=== PATIENT | male | born 1940 | race Caucasian/White ===

== ENCOUNTER → 2023-07-13 17:02 | Outpatient (ROUT) | payer OTHER, SELFPAY ==
[2023-07-13 17:14] LABS: Add Manual Diff / Slide Review NO; Basophils Absolute Auto 0 /uL (0-100); Basophils Percent Auto 0.4 % (0-2); Eosinophils Absolute Auto 300 /uL (0-450); Eosinophils Percent Auto 3.3 % (2-4); Hematocrit 36.5 % (41-53); Hemoglobin 12.7 g/dL (13.5-17.5); Lymphocytes Absolute Auto 1400 /uL (1100-4500); Mean Corpuscular HGB Conc 34.9 % (30-36); Mean Corpuscular Hemoglobin 31.6 PG (26-34); Mean Corpuscular Volume 90.6 fL (80-100); Monocytes Absolute Auto 800 /uL (0-900); Monocytes Percent Auto 8.2 % (3-14); Neutrophils Absolute Auto 7200 /uL (1500-7000); Neutrophils Percent Auto 74.1 % (50-75); Platelet Count 242 X10^3/uL (150-400); Red Blood Cell Count 4.02 X10^6/uL (4.5-5.9); Red Cell Distribution Width 14.3 % (11.6-14.8); White Blood Cell Count 9.7 X10^3/uL (4.5-11.0)
[2023-07-13 17:19] LABS: BUN Creatinine Ratio 19.1 (6-22); Blood Urea Nitrogen 34 mg/dL (9-20); Calcium 10.6 mg/dL (8.4-10.2); Carbon Dioxide 22 mmol/L (22-32); Chloride 109 mmol/L (98-107); Estimated Glomerular Filt Rate 37 mL/min (>60); Glucose 69 mg/dL (80-110); HEMOLYSIS < 15 (0-50); Potassium 4.2 mmol/L (3.4-5.1); Sodium 136 mmol/L (137-145)
== END ==
PROVIDERS: Visit Provider Family Medicine
DX: G43.009 Migraine without aura, not intractable, without status migrainosus (principal)
CPT/HCPCS: 80048; 85025

== ENCOUNTER → 2023-10-02 15:31 | Outpatient (CLI) | payer OTHER, SELFPAY ==
--- NOTE | 2023-10-02 15:33 | DI.US.S_ITS ---
PROCEDURE: US SCROTUM INDICATIONS: SCROTAL ENLARGEMENT TECHNIQUE: Real-time scanning was performed of the scrotum and testicles, with image documentation. Color and pulse Doppler interrogation was performed of both testicles. COMPARISON: None. FINDINGS: Right: Testicle is normal in size at 4.4 x 2.7 x 2.0 cm, and homogenous in echotexture. Epididymis is normal in overall size and morphology. Moderate hydrocele with approximate volume of 52 cc. No varicoceles. Overlying scrotal skin is normal in thickness. Left: Testicle is normal in size at 4.7 x 2.6 x 2.2 cm, and homogeneous in echotexture. Epididymis is normal in overall size and morphology. Large hiatus for seal with estimated volume of 592 cc. No varicoceles. Overlying scrotal skin is normal in thickness. Doppler: Color and pulse Doppler demonstrate normal and symmetric arterial flow in both testicles. IMPRESSION: Bilateral left greater than right hydroceles. Dictated by: Yun Love M.D. on 10/02/2023 at 16:49 Approved by: Yun Love M.D. on 10/02/2023 at 16:51
== END ==
PROVIDERS: PCP Family Medicine; Referring Provider Family Medicine; Visit Provider Family Medicine
DX: N50.89 Other specified disorders of the male genital organs (principal); N43.3 Hydrocele, unspecified
CPT/HCPCS: 76870; 93975

== ENCOUNTER 2023-10-28 13:58 | Emergency (ER) | payer OTHER, SELFPAY ==
[2023-10-28] VITALS (10 sets, daily range): BP systolic 158–217; BP diastolic 74–88; PULSE 51–72; RESP 14; TEMP 36.6; O2SAT 97–99
--- NOTE | 2023-10-28 14:22 | ED.MALEGU ---
HPI - Male Genitourinary General Chief complaint: Urogenital-Male Stated complaint: Blood In Catheter Time Seen by Provider: 10/28/23 14:04 History of Present Illness HPI Narrative: 83-year-old male with history of dementia, chronic indwelling Portillo catheter presents by private vehicle for blood in his Portillo catheter. Patient lives at a health care facility and previously lived in [facility]. There are few medical records of patient's history but he is being followed for his dementia with Dr. Duncan of primary care. Patient does not know why he has a chronic indwelling Portillo catheter or when it was last changed. There is dark red blood in the Portillo bag. Related Data Home Medications Medication Instructions Recorded Confirmed lorazepam 0.5 mg tablet 0.5 mg PO DAILY PRN Agitation 10/28/23 10/28/23 olanzapine 5 mg tablet 5 mg PO ONCE PM 10/28/23 10/28/23 Previous Rx's Medication Instructions Recorded trazodone 50 mg tablet See Rx Instructions PO BEDTIME PRN 10/22/23 sleep 30 days #45 tabs cefuroxime axetil 500 mg tablet 500 mg PO Q12H #20 tabs 10/28/23 Allergies Allergy/AdvReac Type Severity Reaction Status Date / Time epinephrine AdvReac Mild Verified 10/28/23 14:23 iron AdvReac Mild Verified 10/28/23 14:23 Review of Systems Review of Systems Narrative: Unobtainable due to dementia Patient History Social History Smoking Status: Unknown if ever smoked Exam Initial Vital Signs Initial Vital Signs: Vital Signs Temperature 97.8 F 10/28/23 14:00 Pulse Rate 56 L 10/28/23 14:00 Respiratory Rate 14 10/28/23 14:00 Blood Pressure 158/78 H 10/28/23 14:00 Pulse Oximetry 99 10/28/23 14:00 Oxygen Delivery Method Room Air 10/28/23 14:00 Const: Awake, alert, no acute distress, frail Cardiac: regular rate, regular rhythm RESP: unlabored, clear bilaterally, no wheezing GI: Atraumatic, soft, nontender : Portillo in place draining dark red blood, bilateral scrotal swelling (known hydrocele), penile erosion around portillo site MSK: Atraumatic, full range of motion, pulses equal Skin: Warm, Dry, intact, no rashes Neuro: AO x1, CN II-XII grossly intact, moves all extremities Course Orders Ordered: Discontinued Medications Ceftriaxone Sodium 1,000 mg/ (Sodium Chloride) 100 mls @ 200 mls/hr IV NOW ONE Stop: 10/28/23 16:34 Last Infusion: 10/28/23 17:17 Dose: Infused Documented By: Admin: 10/28/23 16:47 Dose: 200 mls/hr Documented By: CANELO Lidocaine HCl (Lidocaine 2% (Glydo) 6 Ml Gel) 6 ml TOP NOW ONE Stop: 10/28/23 14:14 Last Admin: 10/28/23 14:33 Dose: 6 ml Documented By: CANELO Vital Signs Vital signs: Vital Signs - 8 hr 10/28/23 14:00 10/28/23 14:11 10/28/23 14:30 Temperature 97.8 F Pulse Rate 56 L 65 63 Respiratory Rate 14 Blood Pressure 158/78 H Pulse Oximetry 99 99 97 Oxygen Delivery Method Room Air 10/28/23 15:00 10/28/23 15:25 10/28/23 15:25 Temperature Pulse Rate 56 L 56 L Respiratory Rate Blood Pressure 217/88 H Pulse Oximetry 98 99 Oxygen Delivery Method 10/28/23 15:30 10/28/23 16:45 Temperature Pulse Rate 51 L 65 Respiratory Rate Blood Pressure Pulse Oximetry 99 98 Oxygen Delivery Method MDM - Male Genitourinary Lab Data 10/28/23 15:30 10/28/23 15:30 Labs: Lab Results 10/28/23 10/28/23 Range/Units 14:27 15:30 WBC 12.0 H (4.5-11.0) X10^3/uL RBC 4.22 L (4.5-5.9) X10^6/uL Hgb 12.7 L (13.5-17.5) g/dL Hct 38.0 L (41-53) % MCV 90.1 (80-100) fL MCH 30.1 (26-34) PG MCHC 33.4 (30-36) % RDW 15.0 H (11.6-14.8) % Plt Count 193 (150-400) X10^3/uL Neut % (Auto) 80.2 H (50-75) % Lymph % (Auto) 10.9 L (25-40) % [place] % (Auto) 6.1 (3-14) % Eos % (Auto) 2.3 (2-4) % Baso % (Auto) 0.5 (0-2) % Neut # (Auto) 9600 H (7011-8729) /uL Lymph # (Auto) 1300 (1448-8700) /uL Parmer # (Auto) 700 (0-900) /uL Eos # (Auto) 300 (0-450) /uL Baso # (Auto) 100 (0-100) /uL Sodium 134 L (137-145) mmol/L Potassium 4.1 (3.4-5.1) mmol/L Chloride 109 H (98-107) mmol/L Carbon Dioxide 18 L (22-32) mmol/L BUN 31 H (9-20) mg/dL Creatinine 1.75 H (0.66-1.25) mg/dL Estimated GFR 38 L (>60) mL/min BUN/Creatinine Ratio 17.7 (6-22) Glucose 81 (80-110) mg/dL Calcium 10.5 H (8.4-10.2) mg/dL Total Bilirubin 0.6 (0.2-1.3) mg/dL AST 20 (17-59) IU/L ALT 12 (<50) IU/L Alkaline Phosphatase 136 H (38-126) U/L Total Protein 6.1 L (6.3-8.2) g/dL Albumin 3.4 L (3.5-5.0) g/dL Globulin 2.7 (1.7-4.1) g/dL Albumin/Globulin Ratio 1.3 (1.0-2.8) Urine Color Yellow Urine Appearance Cloudy Urine pH 6.0 (4.5-8.0) Ur Specific [place] 1.015 (1.000-1.035) Urine Protein 2+ H (Negative) Urine Glucose (UA) Negative (Negative) g/dL Urine Ketones Negative (NEGATIVE) Urine Occult Blood 3+ H (Negative) Urine Nitrate Negative (Negative) Urine Bilirubin Negative (NEGATIVE) Urine Urobilinogen 0.2 (0.2) E.U./dL Ur Leukocyte Esterase 3+ H (NEGATIVE) Urine RBC 10-30/hpf H (0-5/HPF) Urine WBC 30-100/hpf H (0-5/HPF) Ur Squamous Epith Cells 0-1 /hpf (0-5/HPF) Urine Bacteria Many (>30) H (None) Ur Culture Indicated? Specimen cultured MDM Narrative Medical decision making narrative: Nontoxic patient with red blood in portillo bag. No significant previous known hx other than prostate cancer and bilateral hydrocele. Patient underwent continuous bladder irrigation until urine was clear. CT shows bladder thickening concerning for cystitis. Patient was given IV dose of antibiotics and discharged on course of antibiotics. Unable to reach POA by phone. Counseled to follow up with urology. Discharge Plan Departure Patient Disposition: Home Clinical Impression: Indwelling urinary catheter present, Hematuria Urinary tract infection Qualifiers: Urinary tract infection type: catheter-associated UTI Indwelling urinary catheter type: indwelling urethral catheter Encounter type: initial encounter Qualified Code(s): T83.511A - Infection and inflammatory reaction due to indwelling urethral catheter, initial encounter Instructions: DI for Urinary Tract Infection (UTI) Prescriptions: New cefuroxime axetil 500 mg tablet 500 mg PO Q12H Qty: 20 0RF No Action trazodone 50 mg tablet See Rx Instructions PO BEDTIME MDD 75 mg PRN (Reason: sleep) 30 Days Qty: 45 5RF Rx Instructions: 50 mg daily at bedtime, may take 25mg (1/2 tab) in 30 min if ineffective olanzapine 5 mg tablet 5 mg PO ONCE PM lorazepam 0.5 mg tablet 0.5 mg PO DAILY PRN (Reason: Agitation) Patient Comments: please clarify instructions. Referrals: Fuad Duncan MD [Primary Care Provider] - Luca Wu MD [Physician] - Stand Alone Forms: Patient Portal/API
[2023-10-28] MEDS: LIDOCAINE 2% (GLYDO) 6 ML GEL TOP (14:33)
[2023-10-28 14:45] LABS: Appearance Urine UA CLOUDY; Bilirubin Urine UA NEGATIVE (NEGATIVE); Color Urine UA YELLOW; Glucose Urine UA NEGATIVE (Negative); Ketones Urine UA NEGATIVE (NEGATIVE); Leukocyte Esterase Urine UA 3+ (NEGATIVE); Nitrite Urine UA NEGATIVE (Negative); Occult Blood Urine UA 3+ (Negative); Protein Urine UA 2+ (Negative); Specific Gravity Urine UA 1.015 (1.000-1.035); Urobilinogen Urine UA 0.2 E.U./dL (0.2)
[2023-10-28 14:58] LABS: Bacteria Urine Many (>30); Culture Indicated Urine Specimen Cultured; RBC Urine 10-30/HPF (0-5/HPF); Squamous Epithelial Cell Urine 0-1 /HPF (0-5/HPF); WBC Urine 30-100/HPF (0-5/HPF)
--- NOTE | 2023-10-28 15:10 | DI.CT.S_ITS ---
PROCEDURE: CT ABDOMEN PELVIS W CON INDICATIONS: painless hematuria TECHNIQUE: After the administration of intravenous contrast, axial sections acquired from the lung bases to the pubic symphysis. Coronal and sagittal reformats were performed. For radiation dose reduction, the following was used: automated exposure control, adjustment of mA and/or kV according to patient size. COMPARISON: None. FINDINGS: Image quality: Degraded by motion artifact. Lower Chest: Small right greater than left pleural effusions. Calcification of the coronary vasculature. ABDOMEN: Liver: No solid mass. Gallbladder: Gallbladder is not seen. Biliary ducts: No biliary dilation. Pancreas: Pancreas divisum is present. There is dilatation of the pancreatic duct within the body and tail measuring roughly 7 mm diameter. Spleen: Size is within normal limits. Adrenal Glands: No adrenal nodules. Kidneys and Ureters: There is moderate left and mild right hydronephrosis. Moderate bilateral ureteral dilatation is present.. No solid mass. No complex renal cystic lesion which requires follow up. Stomach and Bowel: Normal colonic caliber, without significant wall thickening. Normal appendix. Peritoneum: No abnormal intraperitoneal fluid. No free air. Ventral Wall: No hernia. Abdominal Nodes: No retroperitoneal or mesenteric adenopathy by size criteria. Vessels: Aorta and inferior vena cava are normal in size. PELVIS: Pelvic Organs: Unremarkable. Bladder: Severe urinary bladder wall thickening. There are 2 calculi dependently within the urinary bladder lumen measuring 15 mm diameter. Ryan catheter is present. Pelvic Nodes: No enlarged lymph nodes. Miscellaneous: No inguinal hernias are seen. Bones: There are erosions within the endplates adjacent to the L2-L3, L3-L4, and L4-L5 intervertebral discs, possibly secondary to chronic discitis/osteomyelitis sequelae. No evidence of acute discitis/osteomyelitis. IMPRESSION: 1. Severe urinary bladder wall thickening, consistent with cystitis. Follow-up cystoscopy is recommended to exclude underlying malignancy. 2. Urinary bladder calculi. 3. Bilateral ureterovesical junction obstruction, with left greater than right hydronephrosis. 4. Normal appendix. 5. Right greater than left pleural effusions. 6. Dilatation of the pancreatic duct, possibly secondary to underlying neoplasm. Nonemergent outpatient follow-up ERCP is recommended for further assessment. 7. Erosions within the lumbar spine, possibly secondary to chronic osteomyelitis/discitis sequelae. Clinical/laboratory correlation recommended to exclude acute discitis/osteomyelitis. 8. Coronary artery disease. Dictated by: Rizwan Lee M.D. on 10/28/2023 at 16:16 Approved by: Rizwan Lee M.D. on 10/28/2023 at 16:21
[2023-10-28 15:37] LABS: Add Manual Diff / Slide Review NO; Basophils Absolute Auto 100 /uL (0-100); Basophils Percent Auto 0.5 % (0-2); Eosinophils Absolute Auto 300 /uL (0-450); Eosinophils Percent Auto 2.3 % (2-4); Hemoglobin 12.7 g/dL (13.5-17.5); Lymphocytes Absolute Auto 1300 /uL (1100-4500); Lymphocytes Percent Auto 10.9 % (25-40); Mean Corpuscular HGB Conc 33.4 % (30-36); Mean Corpuscular Hemoglobin 30.1 PG (26-34); Mean Corpuscular Volume 90.1 fL (80-100); Monocytes Absolute Auto 700 /uL (0-900); Monocytes Percent Auto 6.1 % (3-14); Neutrophils Absolute Auto 9600 /uL (1500-7000); Neutrophils Percent Auto 80.2 % (50-75); Platelet Count 193 X10^3/uL (150-400); Red Blood Cell Count 4.22 X10^6/uL (4.5-5.9)
[2023-10-28 15:54] LABS: Alanine Aminotransferase 12 IU/L (<50); Albumin 3.4 g/dL (3.5-5.0); Albumin Globulin Ratio 1.3 (1.0-2.8); Alkaline Phosphatase 136 U/L (38-126); Aspartate Aminotransferase 20 IU/L (17-59); BUN Creatinine Ratio 17.7 (6-22); Bilirubin Total 0.6 mg/dL (0.2-1.3); Blood Urea Nitrogen 31 mg/dL (9-20); Calcium 10.5 mg/dL (8.4-10.2); Carbon Dioxide 18 mmol/L (22-32); Chloride 109 mmol/L (98-107); Estimated Glomerular Filt Rate 38 mL/min (>60); Globulin 2.7 g/dL (1.7-4.1); Glucose 81 mg/dL (80-110); HEMOLYSIS 28 (0-50); Potassium 4.1 mmol/L (3.4-5.1); Sodium 134 mmol/L (137-145); Total Protein 6.1 g/dL (6.3-8.2)
[2023-10-28] MEDS: cefTRIAXone 1,000 MG in SODIUM CHLORIDE 0.9% 100 ML 200 MG IV (16:47)
--- NOTE | 2023-10-28 17:52 | PC.NURSE ---
spoke w/ krista at [facility], report given.
== END 2023-10-28 18:41 | disposition home or self-care (01) ==
PROVIDERS: Emergency Provider Emergency Medicine; PCP Family Medicine
DX: R31.9 Hematuria, unspecified (principal); T83.511A Infection and inflammatory reaction due to indwelling urethral catheter, initial encounter
CPT/HCPCS: 36415; 74177; 80053; 81001; 85025; 87077; 87086; 87186; 96365; 99284; J0696; Q9967

== ENCOUNTER → 2024-02-03 11:47 | Outpatient (CLI) | payer OTHER, SELFPAY ==
--- NOTE | 2024-02-03 | DI.RAD.S_ITS ---
PROCEDURE: XR ABDOMEN 1V INDICATIONS: constipation/fecal impaction TECHNIQUE: One view of the abdomen acquired. COMPARISON: [facility], CT, CT ABDOMEN PELVIS W CON, 10/28/2023, 16:02. FINDINGS: Surgical changes and devices: None. Bowel: Moderate fecal debris in the rectum. No obstruction. Soft tissues: No suspicious abdominal calcifications. Visualized solid organ contours appear normal in size. Ovoid calcifications in the midline pelvis correspond with bladder stones noted on the prior CT Bones: No suspicious bony lesions. Convex right thoracolumbar scoliosis. Generalized decreased osseous mineralization noted. IMPRESSION: Moderate fecal debris in the rectum without obstruction Stable midline bladder stones as noted on prior CT Approved by: Tapan Dougherty M.D. on 02/03/2024 at 18:09
== END ==
PROVIDERS: PCP Family Medicine; Referring Provider Family Medicine; Visit Provider Family Medicine
DX: N21.0 Calculus in bladder (principal); R15.9 Full incontinence of feces; R15.2 Fecal urgency
CPT/HCPCS: 74018

== ENCOUNTER → 2024-05-18 13:46 | Outpatient (ROUT) | payer OTHER, SELFPAY | PROVIDERS: PCP Family Medicine; Visit Provider Family Medicine | DX: R30.0 Dysuria (principal) | CPT/HCPCS: 87077; 87086 ==

== ENCOUNTER → 2024-06-15 14:23 | Outpatient (ROUT) | payer OTHER, SELFPAY | PROVIDERS: Visit Provider Family Medicine | DX: R41.0 Disorientation, unspecified (principal) | CPT/HCPCS: 87077; 87086; 87186 ==

== ENCOUNTER 2024-07-13 17:10 | Emergency (ER) | payer OTHER, SELFPAY ==
[2024-07-13 17:17] VITALS: O2SAT 98
[2024-07-13 17:18] VITALS: BP 181/92; PULSE 91; RESP 16; O2SAT 99
[2024-07-13 17:19] VITALS: BP 181/97; PULSE 77; RESP 16; TEMP 36.6; O2SAT 97; BMI 17.3
[2024-07-13] MEDS: LIDOCAINE 2% (GLYDO) 6 ML GEL TOP (17:30)
[2024-07-13 17:53] LABS: Appearance Urine UA CLOUDY; Bilirubin Urine UA NEGATIVE (NEGATIVE); Color Urine UA YELLOW; Glucose Urine UA NEGATIVE (Negative); Ketones Urine UA NEGATIVE (NEGATIVE); Leukocyte Esterase Urine UA 2+ (NEGATIVE); Nitrite Urine UA NEGATIVE (Negative); Occult Blood Urine UA 2+ (Negative); Protein Urine UA 2+ (Negative); Urobilinogen Urine UA 0.2 E.U./dL (0.2); pH Urine UA 6.5 (4.5-8.0)
--- NOTE | 2024-07-13 17:56 | PC.NURSE ---
Patient came in from outside facility adult family home with previously placed indwelling portillo catheter, 18 fr with 26 cc in balloon. Patient has had increasing pain and pressure to abdomen radiating up to chest and head and unable to find a position of comfort, history of prostate cancer, and has had decreased urinary output from his normal, unsure of what normal amount is per reports from EMS. Patients catheter was not draining urine and not dated with turbid thick cloudy brown/yellow urine present in tubing, catheter from outside facility removed. New Portillo catheter placed with Glydo and immediate output of cloudy yellow urine with strong odor noted, 1200 cc output within 15 minutes of catheter placement, lab sample obtained for Urinalysis from new catheter. Patient reported relief of discomfort within 15 minutes of newly placed portillo catheter.
[2024-07-13 18:02] LABS: Bacteria Urine Many (>30); Culture Indicated Urine Specimen Cultured; RBC Urine 1-5/HPF (0-5/HPF); Squamous Epithelial Cell Urine None Seen (0-5/HPF); Urine Volume 10mL (spun); WBC Urine >100/HPF (0-5/HPF)
[2024-07-13 18:12] VITALS: BP 142/82; BP 169/76; PULSE 62; PULSE 81; RESP 16; O2SAT 95; O2SAT 99
--- NOTE | 2024-07-13 18:22 | ED_ITS ---
HPI - Male Genitourinary General Chief complaint: Urogenital-Male Stated complaint: Needs Cath. Flushed Time Seen by Provider: 07/13/24 18:02 History of Present Illness HPI Narrative: Patient presents with blocked portillo catheter x1 day. Hx of mild dementia, lives in adult assisted facility. Upon my evaluation the patient's catheter had already been changed by nursing staff and patient denied any new complaints. He denied back pain, abdominal pain, fever, chills, other complaints. Related Data Home Medications Medication Instructions Recorded Confirmed lorazepam 0.5 mg tablet 0.5 mg PO DAILY PRN Agitation 10/28/23 04/26/24 olanzapine 5 mg tablet 5 mg PO ONCE PM 10/28/23 04/26/24 Previous Rx's Medication Instructions Recorded trazodone 150 mg tablet 150 mg PO BEDTIME sleep 90 days 04/13/24 #90 tabs carbamide perox 6.5 % drop-sod See Rx Instructions otic (ear) BID 04/26/24 chlor 0.9%-sod bicarb solution impacted cerumen 4 days #1 ea otic kit nitrofurantoin macrocrystal 100 mg 100 mg PO BID #14 caps 06/20/24 capsule cefpodoxime 200 mg tablet 200 mg PO Q12H #20 tabs 07/13/24 Allergies Allergy/AdvReac Type Severity Reaction Status Date / Time epinephrine AdvReac Mild Verified 06/16/24 08:06 iron AdvReac Mild Verified 06/16/24 08:06 Patient History Social History Smoking Status: Unknown if ever smoked Smoking Status: Unknown if ever smoked alcohol intake frequency: 0-2 drinks per day Substance Use Type: does not use Exam Initial Vital Signs Initial Vital Signs: Vital Signs Pulse Oximetry 98 07/13/24 17:17 Const: Awake, alert, no acute distress, frail, nontoxic appearing Cardiac: regular rate, regular rhythm RESP: unlabored, clear bilaterally, no wheezing GI: Soft, nontender, nondistended, no rebound, no guarding Skin: Warm, Dry, intact, no rashes Neuro: AO x2, CN II-XII grossly intact, moves all extremities Course Orders Ordered: ED Orders 07/13/24 17:35 UA Complete [Urinalysis and Microscopic] Stat Urine Culture Stat Discontinued Medications Ceftriaxone Sodium (Ceftriaxone 2,000 Mg Vial) 1,000 mg IM NOW ONE Stop: 07/13/24 18:23 Last Admin: 07/13/24 18:35 Dose: 1,000 mg Documented By: RIKKI Lidocaine HCl (Lidocaine 2% (Glydo) 6 Ml Gel) 6 ml TOP NOW ONE Stop: 07/13/24 17:14 Last Admin: 07/13/24 17:30 Dose: 6 ml Documented By: RIKKI Lidocaine HCl (Lidocaine 1% (Pf) 5 Ml) 4.2 ml INJ NOW ONE Stop: 07/13/24 18:23 Last Admin: 07/13/24 18:36 Dose: 4.2 ml Documented By: RIKKI Vital Signs Vital signs: Vital Signs - 8 hr 07/13/24 17:17 07/13/24 17:18 07/13/24 17:18 Temperature Pulse Rate 91 H Respiratory Rate 16 Blood Pressure 181/92 H Pulse Oximetry 98 99 Oxygen Delivery Method 07/13/24 17:19 07/13/24 18:12 07/13/24 18:12 Temperature 98 F Pulse Rate 77 62 Respiratory Rate 16 16 Blood Pressure 181/97 H 142/82 H 169/76 H Pulse Oximetry 97 99 Oxygen Delivery Method Room Air Room Air 07/13/24 18:12 Temperature Pulse Rate 81 Respiratory Rate Blood Pressure Pulse Oximetry 95 Oxygen Delivery Method MDM - Male Genitourinary Lab Data Labs: Lab Results 07/13/24 Range/Units 17:35 Urine Color Yellow Urine Appearance Cloudy Urine pH 6.5 (4.5-8.0) Ur Specific [place] 1.020 (1.000-1.035) Urine Protein 2+ H (Negative) Urine Glucose (UA) Negative (Negative) g/dL Urine Ketones Negative (NEGATIVE) Urine Occult Blood 2+ H (Negative) Urine Nitrate Negative (Negative) Urine Bilirubin Negative (NEGATIVE) Urine Urobilinogen 0.2 (0.2) E.U./dL Ur Leukocyte Esterase 2+ H (NEGATIVE) Urine RBC 1-5/hpf D (0-5/HPF) Urine WBC >100/hpf H (0-5/HPF) Ur Squamous Epith Cells None seen (0-5/HPF) Urine Bacteria Many (>30) H (None) Ur Culture Indicated? Specimen cultured Vol Urine Centrifuged 10ml (spun) MDM Narrative Medical decision making narrative: Previously blocked Portillo catheter. Exchanged by nursing staff with drainage of very significantly cloudy urine. Patient was denying UTI complaints, it was possible that patient was chronically colonized, however due to the previous blockage as well as large amounts of WBCs and bacteria present patient will be started on antibiotics. Previous microbiology shows nearly pansensitive E coli. IM dose of Rocephin given in the emergency department and cefpodoxime sent to pharmacy of choice. Patient advised to follow up with Urology. Discharge Plan Departure Patient Disposition: Home Clinical Impression: Urinary tract infection, Indwelling urinary catheter present Instructions: DI for Urinary Tract Infection (UTI) Activity Restrictions/Additional Instructions: Follow up with your urologist. If you do not have a urologist a referral phone number has been provided for you to call and make an appointment Prescriptions: New cefpodoxime 200 mg tablet 200 mg PO Q12H Qty: 20 0RF Rx Instructions: must administer with a meal/food No Action carbamide [id number] 6.5-0.9 % kit See Rx Instructions otic (ear) BID 4 Days Qty: 1 2RF Rx Instructions: 5-10 drops into the ear(s) twice a day; keep drops in ear for several minutes by keeping head tilted or placing cotton in the ear. Use twice daily for up to four days if needed. trazodone 150 mg tablet 150 mg PO BEDTIME 90 Days Qty: 90 2RF nitrofurantoin macrocrystal 100 mg capsule 100 mg PO BID Qty: 14 0RF Rx Instructions: must administer with a meal/food olanzapine 5 mg tablet 5 mg PO ONCE PM lorazepam 0.5 mg tablet 0.5 mg PO DAILY PRN (Reason: Agitation) Patient Comments: please clarify instructions. Referrals: Fuad Duncan MD [Primary Care Provider] - Stand Alone Forms: Patient Portal/API
[2024-07-13] MEDS: cefTRIAXone 2,000 MG VIAL 1000 MG IM (18:35)
[2024-07-13] MEDS: LIDOCAINE 1% (PF) 5 ML 4.2 ML INJ (18:36)
--- NOTE | 2024-07-13 18:42 | PC.NURSE ---
Call placed to [facility]. Tom, truck driver supervisor will be here to pick patient up in about 7-10 min.
== END 2024-07-13 18:55 | disposition home or self-care (01) ==
PROVIDERS: Student in an Organized Health Care Education/Training Program; Emergency Provider Emergency Medicine; PCP Family Medicine
DX: N39.0 Urinary tract infection, site not specified (principal); F03.A0 Unspecified dementia, mild, without behavioral disturbance, psychotic disturbance, mood disturbance, and anxiety; Z96.0 Presence of urogenital implants
CPT/HCPCS: 81001; 87077; 87086; 87186; 96372; 99283; 99284; J0696

== ENCOUNTER → 2024-07-19 12:08 | Outpatient (CLI) | payer OTHER, SELFPAY ==
[2024-07-19 13:19] LABS: COVID-19 CEPHEID 4-PLEX PCR Negative (Negative); Influenza A - CEPHEID Flu A NEGATIVE (NEGATIVE); Influenza B - CEPHEID Flu B NEGATIVE (NEGATIVE); Respiratory Syncytial Virus Negative (Negative)
== END ==
PROVIDERS: PCP Family Medicine; Visit Provider Physician Assistant Medical
DX: R05.1 Acute cough (principal)
CPT/HCPCS: 0241U

== ENCOUNTER 2024-07-19 12:41 | Emergency (ER) | payer OTHER, SELFPAY ==
[2024-07-19] VITALS (11 sets, daily range): BP systolic 136–183; BP diastolic 74–116; PULSE 60–88; RESP 18–37; TEMP 37.1; O2SAT 94–98; BMI 16.1
--- NOTE | 2024-07-19 12:48 | DI.RAD.S_ITS ---
PROCEDURE: XR CHEST 1V INDICATIONS: Shortness of breath TECHNIQUE: One view of the chest was acquired. COMPARISON: None. FINDINGS: Surgical changes and devices: None. Lungs and pleura: Lungs are clear. No pleural effusions or pneumothorax. Mediastinum: Suprahilar mass on the right. Heart size is normal. Bones and chest wall: No suspicious bony lesions. Overlying soft tissues appear unremarkable. IMPRESSION: Suprahilar mass on the right, probably a thyroid goiter, less likely malignancy. Consider chest CT with contrast for confirmation. Dictated by: Oscar Aguilera M.D. on 07/19/2024 at 13:31 Approved by: Oscar Aguilera M.D. on 07/19/2024 at 13:32
[2024-07-19 14:04] LABS: Add Manual Diff / Slide Review NO; Basophils Absolute Auto 0 /uL (0-100); Basophils Percent Auto 0.2 % (0-2); Eosinophils Absolute Auto 0 /uL (0-450); Eosinophils Percent Auto 0.1 % (2-4); Hematocrit 37.7 % (41-53); Hemoglobin 12.5 g/dL (13.5-17.5); Lymphocytes Absolute Auto 800 /uL (1100-4500); Lymphocytes Percent Auto 5.6 % (25-40); Mean Corpuscular HGB Conc 33.3 % (30-36); Mean Corpuscular Hemoglobin 29.3 PG (26-34); Monocytes Absolute Auto 900 /uL (0-900); Monocytes Percent Auto 6.1 % (3-14); Neutrophils Absolute Auto 12900 /uL (1500-7000); Platelet Count 257 X10^3/uL (150-400); Red Blood Cell Count 4.28 X10^6/uL (4.5-5.9); Red Cell Distribution Width 16.7 % (11.6-14.8); White Blood Cell Count 14.6 X10^3/uL (4.5-11.0)
[2024-07-19 14:19] LABS: Lactate (Lactic Acid) 0.9 mmol/L (0.7-2.1)
[2024-07-19 14:21] LABS: Alanine Aminotransferase 19 IU/L (<50); Albumin 3.8 g/dL (3.5-5.0); Albumin Globulin Ratio 1.3 (1.0-2.8); Alkaline Phosphatase 134 U/L (38-126); Aspartate Aminotransferase 25 IU/L (17-59); BUN Creatinine Ratio 13.8 (6-22); Bilirubin Total 0.8 mg/dL (0.2-1.3); Blood Urea Nitrogen 21 mg/dL (9-20); Calcium 10.6 mg/dL (8.4-10.2); Carbon Dioxide 22 mmol/L (22-32); Chloride 109 mmol/L (98-107); Estimated Glomerular Filt Rate 45 mL/min (>60); Glucose 105 mg/dL (80-110); HEMOLYSIS < 15 (0-50); Potassium 3.8 mmol/L (3.4-5.1); Sodium 137 mmol/L (137-145); Total Protein 6.8 g/dL (6.3-8.2)
--- NOTE | 2024-07-19 14:27 | EKG_ITS ---
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
[2024-07-19 14:32] LABS: NT-proBNP (BNP-Adult 18+) 6560 pg/mL (<450); Troponin I 0.019 ng/mL (0.01-0.034)
--- NOTE | 2024-07-19 14:56 | ED.SOB ---
HPI - SOB/Dyspnea General Chief Complaint: Shortness of Breath/Dyspnea Stated Complaint: cough, sent by [facility] Time Seen by Provider: 07/19/24 14:50 Source: patient and family Mode of arrival: Wheelchair History of Present Illness HPI Narrative: 83-year-old male with 3 days duration dry cough and shortness of breath, some chest discomfort with coughing. Chest discomfort without coughing. No known exposure to persons with recent diagnosis COVID. Denies swelling to legs. Denies history of heart failure problems. Not currently on antibiotics. Related Data Home Medications Medication Instructions Recorded Confirmed lorazepam 0.5 mg tablet 0.5 mg PO DAILY PRN Agitation 10/28/23 07/19/24 olanzapine 5 mg tablet 5 mg PO ONCE PM 10/28/23 07/19/24 Previous Rx's Medication Instructions Recorded trazodone 150 mg tablet 150 mg PO BEDTIME sleep 90 days 04/13/24 #90 tabs cefpodoxime 200 mg tablet 200 mg PO Q12H #20 tabs 07/13/24 hydroxyzine HCl 25 mg tablet 25 mg PO DAILY PRN 07/17/24 anxiety/agitation #30 tabs albuterol sulfate 90 mcg/actuation 2 puff inhalation Q6H PRN 07/19/24 aerosol inhaler shortness of breath or wheezing #8.5 grams doxycycline hyclate 100 mg capsule 100 mg PO DAILY #20 caps 07/19/24 furosemide 20 mg tablet (Lasix) 20 mg PO DAILY #7 tabs 07/19/24 Allergies Allergy/AdvReac Type Severity Reaction Status Date / Time epinephrine AdvReac Mild Verified 07/19/24 12:47 iron AdvReac Mild Verified 06/16/24 08:06 zinc AdvReac Verified 07/19/24 12:47 Review of Systems Review of Systems Narrative: see HPI Patient History Social History Smoking Status: Unknown if ever smoked Smoking Status: Unknown if ever smoked alcohol intake frequency: 0-2 drinks per day Substance Use Type: does not use Exam Narrative Exam Narrative: GENERAL: Well-developed patient, in mild distress. HEAD: Atraumatic. Normocephalic. EYES: Pupils equal round and reactive. Extraocular motions intact. No scleral icterus. No injection or drainage. ENT: Nose without bleeding, purulent drainage. Throat without erythema, tonsillar hypertrophy or exudate. Airway patent. NECK: Trachea midline. Non tender CARDIOVASCULAR: Regular rate and rhythm without murmurs, gallops, or rubs. RESPIRATORY: Clear to auscultation. Breath sounds equal bilaterally. No wheezes, rales, or rhonchi. GASTROINTESTINAL: Abdomen soft, non-tender, nondistended. EXTREMITIES: No edema or joint tenderness. BACK: Nontender without deformity or crepitance. No flank tenderness. NEURO: AOx3. Motor functions grossly nonfocal SKIN: No rash or erythema of visible areas Initial Vital Signs Initial Vital Signs: Vital Signs Temperature 98.8 F 07/19/24 12:45 Pulse Rate 88 07/19/24 12:45 Respiratory Rate 18 07/19/24 12:45 Blood Pressure 181/88 H 07/19/24 12:45 Pulse Oximetry 98 07/19/24 12:45 Oxygen Delivery Method Room Air 07/19/24 12:45 Course Orders Ordered: ED Orders 07/19/24 12:48 XR chest 1V Stat EKG-12 Lead Stat Measure peak expiratory flow ONCE RT Consult Eval and Treat NOW 07/19/24 13:57 Complete Blood Count AUTO DIFF Stat Comprehensive Metabolic Panel Stat Lactate (Lactic Acid) Stat NT-proBNP (BNP-Adult 18+) Stat Prothrombin Time INR Stat Troponin I Stat Discontinued Medications Doxycycline Hyclate (Doxycycline Hyclate 100 Mg Tablet) 100 mg PO NOW ONE Stop: 07/19/24 16:59 Last Admin: 07/19/24 17:01 Dose: 100 mg Documented By: GRACE Furosemide (Furosemide 40 Mg/4 Ml Vial) 40 mg IV NOW ONE Stop: 07/19/24 16:44 Last Admin: 07/19/24 16:51 Dose: 40 mg Documented By: GRACE Vital Signs Vital signs: Vital Signs - 8 hr 07/19/24 12:45 07/19/24 14:22 07/19/24 14:23 Temperature 98.8 F Pulse Rate 88 80 Respiratory Rate 18 Blood Pressure 181/88 H 138/88 Pulse Oximetry 98 97 Oxygen Delivery Method Room Air 07/19/24 14:30 07/19/24 14:30 07/19/24 15:00 Temperature Pulse Rate 74 78 Respiratory Rate 29 H 31 H Blood Pressure 156/89 H Pulse Oximetry 97 97 Oxygen Delivery Method 07/19/24 15:00 07/19/24 15:30 07/19/24 15:30 Temperature Pulse Rate 66 Respiratory Rate 25 H Blood Pressure 183/76 H 176/76 H Pulse Oximetry 95 Oxygen Delivery Method 07/19/24 16:00 07/19/24 16:01 07/19/24 16:01 Temperature Pulse Rate 60 64 Respiratory Rate 37 H 27 H Blood Pressure 136/116 H Pulse Oximetry 96 96 Oxygen Delivery Method 07/19/24 16:30 07/19/24 16:31 07/19/24 16:31 Temperature Pulse Rate 69 68 Respiratory Rate 30 H 33 H Blood Pressure 170/80 H Pulse Oximetry 94 95 Oxygen Delivery Method 07/19/24 17:00 07/19/24 17:00 Temperature Pulse Rate 64 Respiratory Rate 26 H Blood Pressure 159/74 H Pulse Oximetry 95 Oxygen Delivery Method MDM - SOB/Dyspnea Lab Data Attestation: I reviewed the patient's lab results. 07/19/24 13:57 07/19/24 13:57 Labs: Lab Results 07/19/24 Range/Units 13:57 WBC 14.6 H (4.5-11.0) X10^3/uL RBC 4.28 L (4.5-5.9) X10^6/uL Hgb 12.5 L (13.5-17.5) g/dL Hct 37.7 L (41-53) % MCV 88.0 (80-100) fL MCH 29.3 (26-34) PG MCHC 33.3 (30-36) % RDW 16.7 H (11.6-14.8) % Plt Count 257 (150-400) X10^3/uL Neut % (Auto) 88.0 H (50-75) % Lymph % (Auto) 5.6 L (25-40) % Beaver % (Auto) 6.1 (3-14) % Eos % (Auto) 0.1 L (2-4) % Baso % (Auto) 0.2 (0-2) % Neut # (Auto) 82255 H (5695-6419) /uL Lymph # (Auto) 800 L (0597-3800) /uL Beaver # (Auto) 900 (0-900) /uL Eos # (Auto) 0 (0-450) /uL Baso # (Auto) 0 (0-100) /uL PT 12.0 (9.4-12.5) SECONDS INR 1.0 (0.9-1.3) Sodium 137 (137-145) mmol/L Potassium 3.8 (3.4-5.1) mmol/L Chloride 109 H (98-107) mmol/L Carbon Dioxide 22 (22-32) mmol/L BUN 21 H (9-20) mg/dL Creatinine 1.52 H (0.66-1.25) mg/dL Estimated GFR 45 L (>60) mL/min BUN/Creatinine Ratio 13.8 (6-22) Glucose 105 (80-110) mg/dL Lactate 0.9 (0.7-2.1) mmol/L Calcium 10.6 H (8.4-10.2) mg/dL Total Bilirubin 0.8 (0.2-1.3) mg/dL AST 25 (17-59) IU/L ALT 19 (<50) IU/L Alkaline Phosphatase 134 H (38-126) U/L Troponin I 0.019 (0.01-0.034) ng/mL NT-Pro-B Natriuret Pep 6560 H (<450) pg/mL Total Protein 6.8 (6.3-8.2) g/dL Albumin 3.8 (3.5-5.0) g/dL Globulin 3.0 (1.7-4.1) g/dL Albumin/Globulin Ratio 1.3 (1.0-2.8) ECG Data Attestation: I personally reviewed and interpreted this ECG as follows: Interpretation: Normal sinus rhythm with rate of 73, no obvious ST segment elevation or depression changes. Flat T-waves slight inversion lead 3 noted, upright another contiguous inferior leads. NC 166, QRS 84, QTC 398. MDM Narrative Medical decision making narrative: 83-year-old male with recent cough and chest pain associated with cough only, screening EKG without obvious ischemic changes. Chest x-ray pending. Labs pending. Suspected upper respiratory infection. COVID and flu swabs pending as well. Chest x-ray possible left lower lobe infiltrate versus atelectatic section, see radiology report. P.o. doxycycline dose for now. BNP elevated, no mention fluid overload changes on CXR. Could be secondary to infection. IV Lasix, Rx for few days of Lasix. Rx for Doxy further antibiotics course to take outpatient. Advised re-chek with PCP next few days, return precautions discssued. Home with family Discharge Plan Departure Patient Disposition: Home Clinical Impression: Shortness of breath, Mediastinal mass, Pneumonia Activity Restrictions/Additional Instructions: 83-year-old male with no known heart or lung problems chronic, sent days cough, increasing shortness of breath. No oxygen requirement on triage. No fever on triage. No low blood pressure readings noted. Chest x-ray read by radiologist as possible left-sided pneumonia, versus left lung atelectatic area artifact change. For now we will add antibiotic oral doxycycline in case this is early pneumonia change, 1st dose in the emergency department, prescription sent to your pharmacy. Swab studies negative for COVID influenza and RSV viruses. Consider use of inhaler, prescription sent to your pharmacy. BNP was elevated, which can represent congestive heart failure or other problems, possible infectious artifact change, IV Lasix dose given, consider oral Lasix for the next few days. Further evaluation as an outpatient. Chest x-ray report did not mention changes of fluid overload that you might expect with congestive heart failure, short course of Lasix diuretic daily next few days for now. Recheck symptoms and labs with your regular doctor in follow up. Recheck with your regular provider in the next few days. Return to this/nearest emergency department for any change worsening symptoms or any concerns prior Prescriptions: New doxycycline hyclate 100 mg capsule 100 mg PO DAILY Qty: 20 0RF furosemide [Lasix] 20 mg tablet 20 mg PO DAILY Qty: 7 0RF albuterol sulfate 90 mcg/actuation HFA aerosol inhaler 2 puff inhalation Q6H PRN (Reason: shortness of breath or wheezing) Qty: 8.5 0RF No Action trazodone 150 mg tablet 150 mg PO BEDTIME 90 Days Qty: 90 2RF hydroxyzine HCl 25 mg tablet 25 mg PO DAILY PRN (Reason: anxiety/agitation) Qty: 30 1RF Rx Instructions: Take 15-30 minutes prior to catheter change for anxiety/agitation cefpodoxime 200 mg tablet 200 mg PO Q12H Qty: 20 0RF Rx Instructions: must administer with a meal/food olanzapine 5 mg tablet 5 mg PO ONCE PM lorazepam 0.5 mg tablet 0.5 mg PO DAILY PRN (Reason: Agitation) Patient Comments: please clarify instructions. Referrals: Fuad Duncan MD [Primary Care Provider] - Stand Alone Forms: Patient Portal/API
[2024-07-19] MEDS: FUROSEMIDE 40 MG/4 ML VIAL IV (16:51)
[2024-07-19] MEDS: DOXYCYCLINE HYCLATE 100 MG TABLET PO (17:01)
== END 2024-07-19 17:17 | disposition home or self-care (01) ==
PROVIDERS: Emergency Provider Emergency Medicine; PCP Family Medicine
DX: J18.9 Pneumonia, unspecified organism (principal); R06.02 Shortness of breath; R22.2 Localized swelling, mass and lump, trunk; R05.1 Acute cough
CPT/HCPCS: 0241U; 36415; 71045; 80053; 83605; 83880; 84484; 85025; 85610; 93005; 93010; 96374; 99284; J1940

== ENCOUNTER → 2024-08-04 10:50 | Outpatient (CLI) | payer OTHER, SELFPAY ==
[2024-08-04 13:18] LABS: BUN Creatinine Ratio 15.8 (6-22); Blood Urea Nitrogen 25 mg/dL (9-20); Calcium 10.6 mg/dL (8.4-10.2); Carbon Dioxide 23 mmol/L (22-32); Chloride 111 mmol/L (98-107); Estimated Glomerular Filt Rate 43 mL/min (>60); Glucose 100 mg/dL (80-110); HEMOLYSIS < 15 (0-50); Potassium 4.1 mmol/L (3.4-5.1); Sodium 137 mmol/L (137-145)
[2024-08-04 13:21] LABS: NT-proBNP (BNP-Adult 18+) 3950 pg/mL (<450)
== END ==
LOC: LAB 10:51
PROVIDERS: PCP Family Medicine; Referring Provider Family Medicine; Visit Provider Family Medicine
DX: R05.1 Acute cough (principal); R91.8 Other nonspecific abnormal finding of lung field; R63.4 Abnormal weight loss
CPT/HCPCS: 36415; 80048; 83880

== ENCOUNTER → 2024-08-20 14:48 | Outpatient (CLI) | payer OTHER, SELFPAY ==
--- NOTE | 2024-08-20 14:49 | DI.CT.S_ITS ---
PROCEDURE: CT CHEST W CON INDICATIONS: Lung mass TECHNIQUE: After the administration of intravenous contrast, 5 mm thick sections acquired from the pulmonary apices to the posterior costophrenic angles. 1 mm axial lung, 5 mm thick coronal and sagittal reformats and 7 mm axial MIP were acquired. For radiation dose reduction, the following was used: automated exposure control, adjustment of mA and/or kV according to patient size. COMPARISON: None. FINDINGS: Image quality: Diagnostic. Lower Neck: No enlarged lymph nodes. Axillae: No enlarged lymph nodes. Chest Wall: Unremarkable. Bones: Unremarkable. Lungs and Pleura: No pneumothorax or pleural effusions. No consolidation or suspicious nodules. Heart: Heart size is normal. No pericardial effusion. Thoracic Vessels: The aorta and pulmonary arteries demonstrate normal size. Mediastinum and Davina: No enlarged lymph nodes. Adjacent to the trachea and esophagus within the superior right mediastinum there is a 6.9 x 6.1 x 5.5 cm fluid collection which is of low attenuation with a perceptible wall and likely a single thin septation versus a layer of internal debris. This lesion extends to the lower pole of the right thyroid lobe and there is a claw sign of thyroid tissue around the superior aspect of this cyst. The thyroid is otherwise normal. Esophagus: No wall thickening. No hiatal hernia. Upper Abdomen: Visualized upper abdomen solid organs and bowel loops show no acute abnormality. 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 An enteric duplication cyst is also within the differential but considered significantly less likely. Thyroid ultrasound can be pursued on a routine outpatient basis for further evaluation. Dictated by: Zoe Gonzales M.D. on 08/20/2024 at 14:22 Approved by: Zoe Gonzales M.D. on 08/20/2024 at 14:28
== END ==
LOC: CT 14:49
PROVIDERS: PCP Family Medicine; Referring Provider Family Medicine; Visit Provider Family Medicine
DX: J98.59 Other diseases of mediastinum, not elsewhere classified (principal); R91.8 Other nonspecific abnormal finding of lung field
CPT/HCPCS: 71260; A9579

== ENCOUNTER → 2024-08-30 07:35 | Outpatient (CLI) | payer OTHER, SELFPAY ==
--- NOTE | 2024-08-30 07:36 | DI.ECHO.S_ITS ---
[facility] : : [address] : : [place] : : [id number] : : Phone: [phone] Echocardiogram Report + + :Name: EDDIE VALLADARES JR Study Date: 08/30/2024 Height: 67 in : :[facility] ReadingLocation: Weight: 113 lb : : Gender: Male BSA: 1.6 m2 : :: 1940 Age: 83 yrs BP: 140/92 mmHg: :Reason For Study: SHORTNESS OF BREATH : : Performed By: Eleanor Schmidt : :Referring: ALVIN JO R : + + Interpretation Summary Left ventricular ejection fraction is estimated to be 50 +/- 5%. The right ventricle is normal in size and function. The right ventricular systolic pressure is estimated to be at least 25 mmHg based on an estimated right atrial pressure of 3 mm Hg. No significant valvular abnormality. Procedure: A two-dimensional transthoracic echocardiogram with color flow and Doppler was performed. There is no prior echocardiogram noted for this patient. The study quality was technically difficult. The patient was in sinus tachycardia with heart rates between 100-110 bpm during the exam. Left Ventricle: Left ventricular wall thickness is mildly increased. Left ventricular ejection fraction is estimated to be 50 +/- 5%. Diastolic function could not be accurately assessed due to tachycardia. Right Ventricle: The right ventricle is normal in size and function. Atria: The left atrial size is normal. Right atrial size is normal. There is no Doppler evidence for an interatrial shunt. Mitral Valve: The mitral valve leaflets appear mildly thickened, but open well. There is no mitral regurgitation noted. Aortic Valve: The aortic valve is trileaflet. The aortic valve is mildly calcified. There is no aortic valve stenosis. There is mild aortic regurgitation. Tricuspid Valve: The tricuspid valve is normal in structure and function. There is mild tricuspid regurgitation. The right ventricular systolic pressure is estimated to be at least 25 mmHg based on an estimated right atrial pressure of 3 mm Hg. Pulmonic Valve: The pulmonic valve is not well seen, but is grossly normal. There is no pulmonic valvular regurgitation. Great Vessels: The aortic root is normal size. The ascending aorta could not be visualized. The inferior vena cava appeared normal. Pericardium/ Pleura There is no pericardial effusion. There is no pleural effusion. MMode/2D Measurements & Calculations LVIDd: 3.5 cm LVOT diam: 2.0 cm LVIDs: 2.8 cm Ao root diam: 3.7 cm FS: 19.3 % IVSd: 1.1 cm LVPWd: 1.3 cm LV morin. diameter/BSA (cm/m^2): 2.2 LV sys. diameter/BSA (cm/m^2): 1.8 LA A2 area: 16.5 cm2 RA long axis: 4.8 cm LA A4 area: 10.5 cm2 RA area: 13.9 cm2 LA length (vol): 3.9 cm RA vol: 34.4 ml LA vol: 37.8 ml RA : 21.7 ml/m2 LA vol index: 23.9 ml/m2 IVC diam: 1.8 cm RVD1 (basal): 3.3 cm TAPSE: 2.0 cm Doppler Measurements & Calculations Ao V2 max: 130.3 cm/sec LVOT Max Alpesh: 117.2 cm/sec Ao V2 mean: 95.7 cm/sec LV V1 max P.5 mmHg Ao max P.8 mmHg LV V1 VTI: 16.9 cm Ao mean P.0 mmHg SHEBA(I,D): 3.0 cm2 Ao V2 VTI: 17.7 cm SHEBA(V,D): 2.8 cm2 sev ratio: 0.96 SHEBA indexed to BSA (cm^2/m^2): 1.9 Med Peak E' Aplesh: 6.7 cm/sec TR max alpesh: 233.3 cm/sec Lat Peak E' Alpesh: 5.4 cm/sec TR max P.8 mmHg SV(LVOT): 52.4 ml Reading Physician:PM
== END ==
PROVIDERS: PCP Family Medicine; Referring Provider Family Medicine; Visit Provider Family Medicine
DX: I08.2 Rheumatic disorders of both aortic and tricuspid valves (principal); R06.02 Shortness of breath; R79.89 Other specified abnormal findings of blood chemistry
CPT/HCPCS: 93306

== ENCOUNTER → 2025-02-24 16:24 | Outpatient (CLI) | payer OTHER, SELFPAY ==
[2025-02-24 17:16] LABS: Adenovirus Not Detected (Not Detect); B. parapertussis Not Detected (Not Detecte); Bordetella pertussis Not Detected (Not Detect); Chlamydophila pneumoniae Not Detected (Not Detect); Coronavirus 229E Not Detected (Not Detect); Coronavirus HKU1 Not Detected (Not Detect); Coronavirus NL 63 Not Detected (Not Detect); Coronavirus OC43 Not Detected (Not Detect); Human Metapneumovirus Not Detected (Not Detect); Human Rhinovirus/Enterovirus Detected (Not Detect); Influenza A Not Detected (Not Detect); Influenza B Not Detected (Not Detect); Mycoplasma pneumoniae Not Detected (Not Detect); Parainfluenza Virus 1 Not Detected (Not Detect); Parainfluenza Virus 2 Not Detected (Not Detect); Parainfluenza Virus 3 Not Detected (Not Detect); Parainfluenza Virus 4 Not Detected (Not Detect); Respiratory Syncytial Virus Not Detected (Not Detect); SARS- CoV-2 Not Detected (Not Detecte)
== END ==
LOC: LAB 16:24
PROVIDERS: PCP Family Medicine; Visit Provider Family Medicine
DX: R06.2 Wheezing (principal)
CPT/HCPCS: 87633

== ENCOUNTER → 2025-03-09 12:13 | Outpatient (ROUT) | payer OTHER, SELFPAY ==
[2025-03-09 12:21] LABS: Appearance Urine UA CLOUDY; Bilirubin Urine UA NEGATIVE (NEGATIVE); Color Urine UA YELLOW; Glucose Urine UA 1+ g/dL (Negative); Ketones Urine UA NEGATIVE (NEGATIVE); Leukocyte Esterase Urine UA 2+ (NEGATIVE); Nitrite Urine UA POSITIVE (Negative); Occult Blood Urine UA 2+ (Negative); Protein Urine UA 1+ (Negative); Urobilinogen Urine UA 0.2 E.U./dL (0.2); pH Urine UA 5.5 (4.5-8.0)
[2025-03-09 12:24] LABS: Urine Volume 10mL (spun)
[2025-03-09 12:25] LABS: Bacteria Urine Many (>30); RBC Urine 5-10/HPF (0-5/HPF); Squamous Epithelial Cell Urine None Seen (0-5/HPF); WBC Urine 10-30/HPF (0-5/HPF)
[2025-03-09 12:26] LABS: Culture Indicated Urine Specimen Cultured
== END ==
PROVIDERS: Visit Provider Family Medicine
DX: R82.90 Unspecified abnormal findings in urine (principal)
CPT/HCPCS: 81001; 87077; 87086; 87186

== ENCOUNTER 2025-04-19 23:41 | Emergency (ER) | payer OTHER, SELFPAY ==
--- NOTE | 2025-04-19 23:50 | ED.GENADULT ---
HPI - General Adult General Chief complaint: Urogenital-Male Stated complaint: bleeding around catheter Time Seen by Provider: 04/19/25 23:44 History of Present Illness HPI narrative: 84-year-old gentleman who lives at [facility], brought in with concern for blood around the penile meatus after Ryan catheter was changed. 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 There was no acute UTI there was no bleeding in the ER and itself. He is not complaining of pain. apparently a [facility] nurse placed the catheter and there was concern that it was inappropriately placed. Patient is significantly demented, does not know where he lives, any of his medical history or meds medications. Aside from being pulled has no other complaints Exam Initial Vital Signs Initial Vital Signs: Vital Signs Temperature 98.3 F 04/19/25 23:51 Pulse Rate 52 L 04/19/25 23:51 Respiratory Rate 20 04/19/25 23:51 Blood Pressure 188/75 H 04/19/25 23:51 Pulse Oximetry 100 04/19/25 23:51 Oxygen Delivery Method Room Air 04/19/25 23:51 General: Awake, conversant, no acute distress Respiratory: Able to speak in full sentences, no obvious respiratory distress Skin: No obvious rashes, warm and dry : Ryan catheter appears to be appropriately placed with yellow urine heavy with sediment freely draining. There is chronic erosion along the distal portion of the urethra from chronic catheter use with no obvious new trauma. There is some blood that appears to be about a day old that is drying over the anterior portion of his scrotum. No immediate source or obvious bleeding at this time Course Vital Signs Vital signs: Vital Signs - 8 hr 04/19/25 23:51 Temperature 98.3 F Pulse Rate 52 L Respiratory Rate 20 Blood Pressure 188/75 H Pulse Oximetry 100 Oxygen Delivery Method Room Air Medical Decision Making MDM Narrative Medical decision making narrative: 84-year-old gentleman with significant dementia, lives in a [facility] family home, has a chronic indwelling Ryan catheter that was apparently changed yesterday small amount of dried blood noted and he is sent to the ER with concerns for poorly placed Ryan. The Ryan itself is appropriately placed, it is causing no pain, there is yellow urine only. No continued bleeding at this time. Reassurance is given. He will be discharged back to his group family home Discharge Plan Departure Patient Disposition: Home Clinical Impression: Ryan catheter problem Activity Restrictions/Additional Instructions: Patient and Ryan catheter examined. He has no blood in the catheter drainage itself. The dried blood likely from the meatus secondary to insertion is gently cleaned, there was no evidence of obvious infection or continued bleeding. Reassurance is given and he is safe for discharge Stand Alone Forms: Patient Portal/API
[2025-04-19 23:51] VITALS: BP 188/75; PULSE 52; RESP 20; TEMP 36.8; O2SAT 100; BMI 16.7
== END 2025-04-20 00:20 | disposition home or self-care (01) ==
LOC: ED 04-20 00:27
PROVIDERS: Emergency Provider Emergency Medicine
DX: T83.83XA Hemorrhage due to genitourinary prosthetic devices, implants and grafts, initial encounter (principal); Y73.1 Therapeutic (nonsurgical) and rehabilitative gastroenterology and urology devices associated with adverse incidents
CPT/HCPCS: 99281

== ENCOUNTER → 2025-04-26 10:57 | Outpatient (CLI) | payer OTHER, SELFPAY ==
--- NOTE | 2025-04-26 10:58 | DI.CT.S_ITS ---
PROCEDURE: CT ABDOMEN PELVIS W CON INDICATIONS: weight loss, bladder wall thickening on previous CT TECHNIQUE: After the administration of intravenous contrast, axial sections acquired from the lung bases to the pubic symphysis. Coronal and sagittal reformats were performed. For radiation dose reduction, the following was used: automated exposure control, adjustment of mA and/or kV according to patient size. COMPARISON: [facility], CT, CT ABDOMEN PELVIS W CON, 10/28/2023, 16:02. FINDINGS: Image quality: Diagnostic. Lower Chest: No significant findings. ABDOMEN: Liver: No solid mass. Gallbladder: No radiopaque gallstones or wall thickening. Biliary ducts: No biliary dilation. Pancreas: There is more prominent, severe volume loss in the body and tail, with dilatation of the main pancreatic duct. There is an apparent calcification near the duct in the region of the neck, with preserved parenchyma in the head and uncinate process and mild dilatation of the main pancreatic duct at this level. There is also a 3 mm calcification seen at the papilla. Spleen: Size is within normal limits. Adrenal Glands: No adrenal nodules. Kidneys and Ureters: No hydronephrosis. No solid mass. No complex renal cystic lesion which requires follow up. Stomach and Bowel: Normal colonic caliber, without significant wall thickening. Peritoneum: No abnormal intraperitoneal fluid. No free air. Ventral Wall: No significant ventral hernia. Abdominal Nodes: No retroperitoneal or mesenteric adenopathy by size criteria. Vessels: Aorta and inferior vena cava are normal in size. PELVIS: Pelvic Organs: Prostate enlarged measuring 6.8 x 6.9 cm in transverse diameter. Large bilateral hydrocele. Bladder: There is severe diffuse wall thickening. There are 2 large calculi measuring 1.6 and 2 cm. Pelvic Nodes: No enlarged lymph nodes. Miscellaneous: No inguinal hernias are seen. Bones: No aggressive osseous abnormality. IMPRESSION: 1. There is more prominent, severe volume loss in the pancreatic body and tail. This is probably due to a intraductal stone in the region of the neck, no definite obstructing mass seen. 2. There is also a probable 3 mm stone in the duodenal papilla, with [id number] dilatation of the pancreatic duct in the head and neck. 3. Severe prostate enlargement, with bladder outlet obstruction and trabeculation. Two large bladder calculi again seen. 4. Persistent large bilateral hydrocele. Dictated by: Shar Aguilar M.D. on 04/26/2025 at 14:45 Approved by: Shar Aguilar M.D. on 04/26/2025 at 14:52
[2025-04-26 11:26] LABS: Estimated Glomerular Filt Rate 40 mL/min (>60)
== END ==
PROVIDERS: PCP Family Medicine; Referring Provider Family Medicine; Visit Provider Family Medicine
DX: N32.89 Other specified disorders of bladder (principal); N32.0 Bladder-neck obstruction; K86.89 Other specified diseases of pancreas; N43.3 Hydrocele, unspecified; N50.89 Other specified disorders of the male genital organs; N40.0 Benign prostatic hyperplasia without lower urinary tract symptoms; R63.4 Abnormal weight loss; Z96.0 Presence of urogenital implants
CPT/HCPCS: 36415; 74177; 82565; Q9967